=== PATIENT | female | born 1995 | race Caucasian/White ===

== ENCOUNTER 2018-08-12 14:48 | Emergency (ER) | payer SELFPAY ==
[~2018-08-12] VITALS: Ht 175.3 cm; Wt 104.5 kg
[2018-08-12 14:55] VITALS: Ht 175.3 cm; Wt 104.5 kg
[2018-08-12] MEDS ORDERED: OMEPRAZOLE20 M1 PO (15:58)
[2018-08-12] MEDS ORDERED: VOLTAREN75 MG PO (15:58)
[2018-08-12 16:33] VITALS: BP 140/83
== END 2018-08-12 16:33 | disposition home or self-care (01) ==
LOC: D.ER 14:48
DX: M25.562 Pain in left knee (principal); F17.210 Nicotine dependence, cigarettes, uncomplicated

== ENCOUNTER 2018-08-15 22:12 | Emergency (ER) | payer SELFPAY ==
[~2018-08-15] VITALS: Ht 175.3 cm; Wt 104.5 kg
[~2018-08-15 22:12] MED LIST: OMEPRAZOLE20 M1 PO; VOLTAREN75 MG PO
[2018-08-15 22:17] VITALS: Ht 175.3 cm; Wt 104.5 kg
[2018-08-15 23:02] VITALS: BP 131/93
== END 2018-08-15 23:00 | disposition home or self-care (01) ==
LOC: D.ER 22:12
DX: S83.92XA Sprain of unspecified site of left knee, initial encounter (principal); X50.0XXA Overexertion from strenuous movement or load, initial encounter

== ENCOUNTER 2018-10-28 17:18 | Emergency (ER) | payer MEDICAID ==
[~2018-10-28] VITALS: Ht 175.3 cm; Wt 104.5 kg
[2018-10-28 17:23] VITALS: Ht 175.3 cm; Wt 104.5 kg
[2018-10-28 18:19] LABS: BASOPHILS 0.3 % (0-2); EOSINOPHILS 2.9 % (0-7); HEMATOCRIT 44.3 % (36.0-48.0); HEMOGLOBIN 15.4 g/dL (12-16); IMMATURE GRANULOCYTES 0.3 % (0-5); LYMPHOCYTES 25.6 % (15-50); MCH 30.4 pg (26.0-34.0); MCHC 34.8 g/dL (31.0-37.0); MCV 87.4 fL (80.0-100.0); MEAN PLATELET VOLUME 9.6 fL (7.4-10.4); MONOCYTES 4.9 % (2-11); PLATELET COUNT 411 10x3/uL (130-400); RBC 5.07 10x6/uL (4.00-5.40); WBC 11.6 10x3/uL (4.8-10.8)
[2018-10-28 18:35] LABS: APPEARANCE CLEAR (CLEAR); COLOR YELLOW (YELLOW)
[2018-10-28 18:36] LABS: BILIRUBIN NEGATIVE (NEGATIVE); GLUCOSE NEGATIVE (NEGATIVE); KETONE NEGATIVE (NEGATIVE); NITRITE NEGATIVE (NEGATIVE); PROTEIN TRACE mg/dL (NEGATIVE); UROBILINOGEN NORMAL (NORMAL)
[2018-10-28 18:37] LABS: RED CELLS - URINE 0-5 /hpf (0-5); WHITE CELLS - URINE 0-5 /hpf (0-5)
[2018-10-28 18:38] LABS: BACTERIA FEW /hpf (NONE SEEN); CALCIUM OXALATE CRYSTALS 0-5 /hpf (NONE SEEN); EPITHELIAL CELLS 0-5 /hpf (0-5); MUCUS <1+ /lpf (NONE SEEN)
[2018-10-28] MEDS ORDERED: NAPROSYN500 MG PO (19:20)
[2018-10-28 19:23] LABS: HCG SERUM NEGATIVE (NEGATIVE)
[2018-10-28 20:10] VITALS: BP 117/84
== END 2018-10-28 20:10 | disposition home or self-care (01) ==
LOC: D.ER 17:18
PROVIDERS: Emergency Medicine; Family Medicine
DX: N94.6 Dysmenorrhea, unspecified (principal); F17.210 Nicotine dependence, cigarettes, uncomplicated